=== PATIENT | male | born 1950 | race Caucasian/White ===

== ENCOUNTER → 2020-07-26 09:24 | Outpatient (BNVA) | payer MEDICARE, OTHER, SELFPAY | PROVIDERS: Family Provider Family Medicine; PCP Family Medicine; Referring Provider Family Medicine; Visit Provider Nurse Practitioner Family | DX: N39.0 Urinary tract infection, site not specified (principal) | CPT/HCPCS: 81001 ==

== ENCOUNTER → 2020-08-11 12:02 | Outpatient (BNVA) | payer MEDICARE, OTHER, SELFPAY | PROVIDERS: Family Provider Family Medicine; PCP Family Medicine; Visit Provider Nurse Practitioner Family | DX: Z20.828 Contact with and (suspected) exposure to other viral communicable diseases (principal) | CPT/HCPCS: 87635 ==

== ENCOUNTER 2020-11-21 08:38 | Outpatient (CLI) | payer MEDICARE, OTHER, SELFPAY ==
--- NOTE | 2020-11-21 08:30 | XR_ITS ---
WS: [id number] KUB, 11/21/2020 Clinical Data: Stones Comparison: None. Findings: No abnormal intraabdominal masses or calcifications are seen. There is no dilatated small bowel or ev idence of obstruction. There are phleboliths in the true pelvis. There is fecal material in the colon obscuring detail over the kidneys. XR/XR KUB [id number] Impression: Negative KUB.
== END 2020-11-21 08:39 | disposition home or self-care (01) ==
PROVIDERS: Visit Provider Urology
DX: N20.9 Urinary calculus, unspecified (principal)
CPT/HCPCS: 74018; 81003; G0103

== ENCOUNTER 2021-11-20 07:59 | Outpatient (CLI) | payer MEDICARE, OTHER, SELFPAY ==
--- NOTE | 2021-11-20 08:07 | XR_ITS ---
WS: [id number] XR KUB [id number] REASON FOR EXAM: urolithiasis FINDINGS: No urinary tract calculi are identified. No other significant abdominal or pelvic abnormality. 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 No change compared to 11/21/2020. XR/XR KUB [id number] IMPRESSION: No urinary tract calculi identified.
== END 2021-11-20 08:00 | disposition home or self-care (01) ==
LOC: RAD 08:06
PROVIDERS: PCP Family Medicine; Visit Provider Urology
DX: N20.9 Urinary calculus, unspecified (principal)
CPT/HCPCS: 74018; 81003

== ENCOUNTER 2022-05-05 16:02 | Outpatient (CLI) | payer MEDICARE, OTHER, SELFPAY ==
--- NOTE | 2022-05-05 16:25 | XR_ITS ---
WS: [id number] XR cervical spine 4-5V [id number] REASON FOR EXAM: CERVICALGIA FINDINGS: Normal lordosis of the cervical spine. No compression deformity or focal lesion of the cervical vertebrae. Intervertebral disc space narrowing with anterior and posterior osteophytic spurring C3-C4, C4-C5, C5 -C6, and C6-C7. Moderate bilateral neural foraminal narrowing secondary to uncinate osteophytes C5-C6 and C6-C7. No significant spondylolisthesis. Normal facet joint alignment. XR/XR cervical spine 4-5V [id number] IMPRESSION: Multilevel degenerative spondylosis of the cervical spine as above.
== END 2022-05-05 16:03 | disposition home or self-care (01) ==
LOC: RAD 16:12
PROVIDERS: PCP Family Medicine; Visit Provider Nurse Practitioner Family
DX: M54.2 Cervicalgia (principal); M47.892 Other spondylosis, cervical region
CPT/HCPCS: 72050

== ENCOUNTER 2022-11-18 11:09 | Outpatient (CLI) | payer MEDICARE, OTHER, SELFPAY ==
[2022-11-18 13:07] LABS: Prostate Specific AG Urology 0.53 ng/mL (0-4)
== END 2022-11-18 11:10 | disposition home or self-care (01) ==
PROVIDERS: PCP Family Medicine; Visit Provider Urology
DX: Z12.5 Encounter for screening for malignant neoplasm of prostate (principal)
CPT/HCPCS: 36415; 84153

== ENCOUNTER → 2022-11-19 08:57 | Outpatient (BNVA) | payer MEDICARE, OTHER, SELFPAY | PROVIDERS: PCP Family Medicine; Visit Provider Urology | DX: Q61.5 Medullary cystic kidney (principal); N39.0 Urinary tract infection, site not specified; Z12.5 Encounter for screening for malignant neoplasm of prostate | CPT/HCPCS: 51798; 81003; 99213 ==

== ENCOUNTER → 2022-12-09 11:34 | Outpatient (BNVA) | payer MEDICARE, OTHER, SELFPAY | PROVIDERS: PCP Family Medicine; Visit Provider Family Medicine | DX: Z00.00 Encounter for general adult medical examination without abnormal findings (principal); Q61.5 Medullary cystic kidney; Z12.5 Encounter for screening for malignant neoplasm of prostate; Z13.6 Encounter for screening for cardiovascular disorders | CPT/HCPCS: 80053; 80061 ==

== ENCOUNTER 2022-12-18 05:56 | Outpatient (CLI) | payer MEDICARE, OTHER, SELFPAY ==
--- NOTE | 2022-12-18 06:06 | USCV_ITS ---
Ralph Goff Age: 71 Gender: M : 1950 Exam Date: 12/18/2022 06:12 Ordering Phys: Alize Corbett NP Technologist: WARD Exam Location: [facility] – [place] Indication: [place]reen[place] AA HISTORY: Screening for AAA Diameter (cm) AP x Transverse x Length Velocity (cm/s) Waveform Prox Aorta: 1.71 x 2.38 x 81.40 Mid Aorta: 1.92 x 2.09 x 75.10 Distal Aorta: 1.65 x 2.09 x 74.80 Right Iliac Prox: 1.08 x 1.28 x 76.20 Left Iliac Prox: 1.12 x 1.28 x 79.00 Stent Prox Landing x x Aneurysmal Sac Max x x Lt Lat Sac Dim Rt Lat Sac Dim Stent Dist Landing x x Right Iliac Stent x x Left Iliac Stent x x Right Renal Art Left Renal Art FINDINGS: CONCLUSIONS No evidence of abdominal aortic or bilateral iliac aneurysm. Yamil Hernández MD (Electronically Signed) Final Date: 18 December 2022 11:40 S
== END 2022-12-18 05:57 | disposition home or self-care (01) ==
LOC: RAD 05:59
PROVIDERS: PCP Family Medicine; Visit Provider Nurse Practitioner Family
DX: Z13.6 Encounter for screening for cardiovascular disorders (principal)
CPT/HCPCS: 76706

== ENCOUNTER 2023-09-10 15:26 | Outpatient (CLI) | payer MEDICARE, OTHER, SELFPAY ==
--- NOTE | 2023-09-10 15:29 | CTR_ITS ---
PROCEDURE INFORMATION: Exam: CT Abdomen And Pelvis Without Contrast Exam date and time: 09/10/2023 3:33 PM Age: 72 years old Clinical indication: Abdominal pain; Prior surgery; Surgery date: 6+ months; Surgery type: Back; Patient HX: --ruq pain- PT states it is right under his ribs-pain with taking a breath in or twisting. Pain started 2 weeks ago and lasted 5 days. PT states pain has decreased significantly since. TECHNIQUE: Imaging protocol: Computed tomography of the abdomen and pelvis without contrast. Radiation optimization: All CT scans at this facility use at least one of these dose optimization techniques: automated exposure control; mA and/or kV adjustment per patient size (includes targeted exams where dose is matched to clinical indication); or iterative reconstruction. REPORTING DATA: Count of CT and Cardiac NM exams in prior 12 months: This patient has received 0 known CTs and 0 known cardiac nuclear medicine studies in the 12 months prior to the current study. COMPARISON: CR XR KUB [id number] 11/20/2021 8:13 AM RADIATION DOSE METRICS: Total DLP (mGy-cm): 361.17 FINDINGS: Lungs: Lung bases are clear. Liver: Normal. No mass. Gallbladder and bile ducts: Gallbladder is contracted limiting its assessment. Bile ducts are not dilated. Pancreas: Normal. No ductal dilation. Spleen: Scattered granulomatous calcifications within the spleen is otherwise unremarkable. Adrenal glands: Normal. No mass. Kidneys and ureters: Small nonobstructing renal stones bilaterally. No hydronephrosis. 4 cm benign right renal cyst. Stomach and bowel: Moderate degree of retained food within the stomach which may be due to improper fasting with gastroparesis to be excluded. Few diverticuli without evidence of acute diverticulitis. Appendix: No evidence of acute appendicitis. Intraperitoneal space: Unremarkable. No free air. No significant fluid collection. Vasculature: Unremarkable. No abdominal aortic aneurysm. Lymph nodes: Unremarkable. No enlarged lymph nodes. Urinary bladder: Unremarkable as visualized. Reproductive: Unremarkable as visualized. Bones/joints: Mild-moderate degenerative changes lower lumbar spine. No acute bony abnormalities. Soft tissues: Unremarkable. CT/CT abdomen pelvis wo con [id number] IMPRESSION: 1. No acute abnormalities within the abdomen or pelvis. 2. Small nonobstructing renal stones bilaterally. 3. Additional nonemergent findings as above. COMMENTS: Consistent with the [employer]'s Incidental Findings Committee white paper (J Am Payton Radiol 2018): Any incidental renal lesion less than 1 cm or classified as too small to characterize, or any incidental cystic renal lesion characterized as simple-appearing, is likely benign. No follow-up imaging is recommended for these lesions per consensus recommendations based on imaging criteria.
== END 2023-09-10 15:27 | disposition home or self-care (01) ==
LOC: RAD 15:27
PROVIDERS: PCP Family Medicine; Visit Provider Nurse Practitioner Family
DX: R10.11 Right upper quadrant pain (principal)
CPT/HCPCS: 74176